=== PATIENT | female | born 1990 | race Caucasian/White ===

== ENCOUNTER → 2019-05-21 10:05 | Outpatient (CLI) | payer OTHER, SELFPAY ==
[2019-05-21 10:52] LABS: Hematocrit 40.2 % (36-46); Hemoglobin 13.4 g/dL (12.0-16.0); Mean Corpuscular HGB Conc 33.4 % (30-36); Mean Corpuscular Hemoglobin 29.2 PG (26-34); Mean Corpuscular Volume 87.4 fL (80-100); Platelet Count 262 X10^3/uL (150-400); Red Blood Cell Count 4.61 X10^6/uL (4.0-5.2); Red Cell Distribution Width 12.6 % (11.6-14.8); White Blood Cell Count 9.9 X10^3/uL (4.5-11.0)
[2019-05-21 11:22] LABS: Alanine Aminotransferase 6 IU/L (9-52); Albumin 4.1 g/dL (3.5-5.0); Albumin Globulin Ratio 1.2 (1.0-2.8); Alkaline Phosphatase 39 U/L (38-126); Aspartate Aminotransferase 19 IU/L (14-36); BUN Creatinine Ratio 18.3 (6-22); Bilirubin Total 0.5 mg/dL (0.2-1.3); Blood Urea Nitrogen 11 mg/dL (7-17); Calcium 8.9 mg/dL (8.4-10.2); Carbon Dioxide 28 mmol/L (22-32); Chloride 103 mmol/L (98-107); Estimated Glomerular Filt Rate > 60.0 mL/min (>60); Globulin 3.3 g/dL (1.7-4.1); Glucose 90 mg/dL (70-100); HEMOLYSIS < 15 (0-50); Potassium 3.8 mmol/L (3.4-5.1); Sodium 137 mmol/L (137-145); Total Protein 7.4 g/dL (6.3-8.2)
[2019-05-21 11:46] LABS: TSH w/ Reflex to FT4 2.85 uIU/mL (0.47-4.68)
== END ==
PROVIDERS: Visit Provider Nurse Practitioner
DX: R63.5 Abnormal weight gain (principal); Z00.00 Encounter for general adult medical examination without abnormal findings
CPT/HCPCS: 36415; 80053; 84443; 85027

== ENCOUNTER → 2025-08-09 11:48 | Outpatient (CLI) | payer OTHER, SELFPAY ==
[2025-08-09 13:07] LABS: Add Manual Diff / Slide Review NO; Hematocrit 38.7 % (36-46); Hemoglobin 13.1 g/dL (12.0-16.0); Lymphocytes Absolute Auto 1800 /uL (1100-4500); Mean Corpuscular HGB Conc 33.9 % (30-36); Mean Corpuscular Hemoglobin 30.1 PG (26-34); Mean Corpuscular Volume 88.7 fL (80-100); Platelet Count 258 X10^3/uL (150-400)
[2025-08-09 13:38] LABS: Alanine Aminotransferase 11 IU/L (<35); Albumin 4.8 g/dL (3.5-5.0); Albumin Globulin Ratio 1.7 (1.0-2.8); Alkaline Phosphatase 38 U/L (38-126); Blood Urea Nitrogen 8 mg/dL (7-17); Calcium 9.5 mg/dL (8.4-10.2); Carbon Dioxide 23 mmol/L (22-32); Chloride 105 mmol/L (98-107); Estimated Glomerular Filt Rate > 60 mL/min (>60); Globulin 2.9 g/dL (1.7-4.1); Glucose 83 mg/dL (70-99); HEMOLYSIS < 15 (0-50); Potassium 4.9 mmol/L (3.4-5.1); Sodium 138 mmol/L (137-145); Total Protein 7.7 g/dL (6.3-8.2)
[2025-08-09 13:57] LABS: Free T4, Direct Thyroxine 1.44 ng/dL (0.78-2.19)
[2025-08-09 14:11] LABS: Thyroid Stimulating Hormone 2.06 uIU/mL (0.47-4.68)
== END ==
PROVIDERS: PCP Nurse Practitioner; Referring Provider Physician Assistant; Visit Provider Physician Assistant
DX: L94.0 Localized scleroderma [morphea] (principal)
CPT/HCPCS: 36415; 80053; 84439; 84443; 85025; 86376

== ENCOUNTER → 2025-10-07 11:48 | Outpatient (CLI) | payer OTHER, SELFPAY ==
[2025-10-07 12:44] LABS: Hemoglobin A1C% w Est Avg Glu 4.4 % (4.0-6.0)
[2025-10-07 12:53] LABS: HEMOLYSIS < 15 (0-50); Iron 98 ug/dL (37-170)
[2025-10-07 13:04] LABS: Percent Iron Saturation 38 % (15-50); Total Iron Binding Capacity 260 ug/dL (265-497); Transferrin 215 mg/dL (206-381)
[2025-10-08 04:36] LABS: CRP, High Sensitivity 0.90 mg/L (0.00-3.00)
== END ==
PROVIDERS: PCP Family Medicine; Referring Provider Family Medicine; Visit Provider Family Medicine
DX: N92.6 Irregular menstruation, unspecified (principal); R53.83 Other fatigue; R21 Rash and other nonspecific skin eruption; L94.0 Localized scleroderma [morphea]; Z83.2 Family history of diseases of the blood and blood-forming organs and certain disorders involving the immune mechanism
CPT/HCPCS: 36415; 83036; 83520; 83540; 83550; 85651; 86140; 86147; 86148; 86430